=== PATIENT | female | born 1965 | race Caucasian/White ===

== ENCOUNTER 2016-11-18 09:34 | Inpatient (IN) | payer OTHER ==
--- NOTE | 2016-11-03 13:54 | HP ---
HISTORY AND PHYSICAL: DATE OF ADMISSION/SURGERY: 11/18/16 DATE OF OFFICE VISIT: 11/03/16 PROCEDURE: Left total hip replacement. CHIEF COMPLAINT: Right hip pain. HISTORY OF PRESENT ILLNESS: The patient is a very pleasant 51-year-old female who presents today for history and physical examination prior to undergoing a right total hip replacement. The patient has a longstanding history of right severe osteoarthritis of the hip and has failed conservative treatments such as physical therapy, NSAID, and modified use. She has has elected to undergo a right total hip replacement by Dr. Sangeetha Christensen on 11/18/16. PAST MEDICAL HISTORY: 1. Arthritis. 2. History of right bundle branch block. PAST SURGICAL HISTORY: Tonsillectomy. MEDICATIONS: Advil p.r.n. ALLERGIES: No known drug allergies. FAMILY MEDICAL HISTORY: History of maternal heart disease. SOCIAL HISTORY: Currently working as a hairdresser. Approximately 5 drinks per week. Lives with , who has a stage 4 colon cancer. No history of tobacco use. REVIEW OF SYSTEMS: General: Negative for fevers, chills, or night sweats. No difficulty with anesthesia; however, relatively unknown. Positive intentional weight loss over the past 2 to 3 months. HEENT: Negative for headache, lightheadedness or syncopal episodes. Integument: Negative for abrasions, lesions, open wounds, sores, or difficulty with wound healing. Cardiothoracic: Negative for hypertension, chest pain, palpitations, or edema. Recently diagnosed with right bundle branch block. Pulmonary: Negative for shortness of breath, chronic cough, or COPD. GI: Negative for nausea, vomiting, constipation, diarrhea, or GERD. : Negative for nocturia, urinary frequency or urgency. No history of UTIs. Musculoskeletal: Positive for intermittent back pain. Positive for right hip pain. Neuro: Negative for paresthesias, numbness. No history of stroke. Endocrine: Negative for diabetes. Negative for thyroid issues. Hematologic: Positive for easy bruising. Negative for DVT. PHYSICAL EXAMINATION GENERAL: Well appearing, in no acute distress. Alert and oriented. VITAL SIGNS: Height 67 inches, weight 163 pounds. Pulse 73, blood pressure 147 /90, temperature 97.7. BMI 25.5. HEENT: Normocephalic, atraumatic. EOMI. PULMONARY: Lungs are clear to auscultation bilaterally. No crackles, rhonchi or wheezes. CARDIO: Regular rate and rhythm. No murmurs, gallops or rubs. Normal S1 and S2. ABDOMEN: Soft, nontender, and nondistended, not obese. Negative CVA tenderness bilaterally. MUSCULOSKELETAL: Right hip with range of motion and forward flexion to 90, abduction to 35 degrees. Negative Homans sign bilaterally. Positive 2+ posterior tibial pulses. NEUROLOGIC: Alert and oriented x3. Cranial nerves grossly intact. Sensation intact to light touch in bilateral lower extremities. DIAGNOSTIC STUDIES: X-rays of the right hip and pelvis dated 10/27/16. IMPRESSION: The patient is a very pleasant 51-year-old female who presents today for history and physical examination prior to undergoing a right total hip replacement. The patient was seen by Dr. Birmingham for her preoperative evaluation. She would like to return home postoperatively. She has one episode of taking narcotics in the past, which she was unknown as a medication, but stated that this had made her sick. Therefore, we will not send her postoperative medications until we know what narcotic she will be able to handle. She would like to have a very minimal amount of narcotic during her hospital course, if at all possible. Dr. Christensen met with the patient and discussed the risks and benefits of the procedure. She has no other questions or concerns. ALONDRA ERNST [id number]/[facility] #: [id number] MTDD
[~2016-11-18 09:34] MED LIST: Buffered Lidocaine 0.9% SYRIN* 5 ML/SYR SYRINGE INTRADERM ONE; Gabapentin CAP(*) 400 MG PO ONE; Sodium Citrate/Citric Acid* 15 ML UDC PO ONE
[2016-11-18] MEDS ORDERED: Gabapentin CAP(*) 300 MG ONE (09:40)
[2016-11-18] MEDS ORDERED: Buffered Lidocaine 0.9% SYRIN* 5 ML/SYR SYRINGE ONE (09:41)
[2016-11-18] MEDS ORDERED: ceFAZolin 2 GM PREMIX(*) 2 GM/50 ML BAG IVPB ONE (09:41)
[2016-11-18] MEDS ORDERED: Sodium Citrate/Citric Acid* 15 ML UDC ONE (09:41)
[2016-11-18 09:55] LABS: Manual Entry Verification JEA0012; UR Preg Internal Control QC Line Present
[2016-11-18] MEDS ORDERED: Morphine PF AMP (0.5MG/ML)* 5 MG/10 ML AMP ONE (12:04)
[2016-11-18] MEDS ORDERED: Midazolam* 1 MG/ML 5 ML VIAL (5 MG) ONE (12:04)
[2016-11-18] MEDS ORDERED: fentaNYL* 50 MCG/ML 2 ML VIAL (100 MCG VIAL) ONE ×2 (12:04→15:00)
[2016-11-18] MEDS ORDERED: Bupivacaine 0.5% SDV PF* 30 ML VIAL ONE (12:05)
[2016-11-18] MEDS ORDERED: Propofol* 500 MG/50 ML BTL ONE (12:37)
[2016-11-18] MEDS ORDERED: Naloxone* 0.4 MG/ML 1 ML VIAL IV PRN (12:56)
[2016-11-18] MEDS ORDERED: DiMENhydriNATE IV* 50 MG/ML VIAL IV PUSH PRN (12:56)
[2016-11-18] MEDS ORDERED: oxyCODONE TAB* 5 MG TAB PO PRN ×2 (12:56→14:17)
[2016-11-18] MEDS ORDERED: Ondansetron INJ* 2 MG/ML VIAL IV PRN ×2 (12:56→14:17)
[2016-11-18] MEDS ORDERED: Nalbuphine* 20 MG/ML 1 ML VIAL IV PRN (12:56)
[2016-11-18] MEDS ORDERED: Ketorolac INJ* 30 MG/ML 1 ML VIAL IV PRN (12:59)
[2016-11-18] MEDS ORDERED: fentaNYL* 50 MCG/ML 2 ML VIAL (100 MCG VIAL) IV PRN (12:59)
[2016-11-18] MEDS ORDERED: Phenylephrine IV* 40 MCG/ML 10 ML SYRINGE ONE (13:06)
[2016-11-18] MEDS ORDERED: EPHEDrine (Pressors)* 50 MG/ML VIAL ONE (13:21)
[2016-11-18] MEDS ORDERED: diPHENhydraMINE PO* 25 MG PO PRN (14:17)
[2016-11-18] MEDS ORDERED: diPHENhydraMINE IV* 50 MG/ML 1 ml VIAL (BENADRYL) IV PRN (14:17)
[2016-11-18] MEDS ORDERED: Ondansetron TAB* 4 MG PO PRN (14:17)
[2016-11-18] MEDS ORDERED: Acetaminophen TAB* 325 MG PO PRN (14:17)
[2016-11-18] MEDS ORDERED: oxyCODONE/Acetamin 5/325 MG* TAB PO PRN ×2 (14:17→14:32)
[2016-11-18] MEDS ORDERED: Morphine INJ* 10 MG/ML 1 ML SYRINGE IV PRN (14:17)
[2016-11-18] MEDS ORDERED: Polyethylene Glycol 3350* 17 GM PACKET PO PRN (14:23)
[2016-11-18] MEDS ORDERED: Cetirizine* 10 MG TAB PO PRN (14:29)
--- NOTE | 2016-11-18 14:59 | RAD ---
HISTORY: Right total hip replacement COMPARISONS: October 27, 2016 VIEWS: 1, portable intraoperative view of the right hip performed at 1:55 PM FINDINGS: Single portable frontal view of the right hip. The patient is status post right hip arthroplasty with a temporary femoral sizing component IMPRESSION: PORTABLE INTRAOPERATIVE VIEW OF THE RIGHT HIP DURING ARTHROPLASTY
[2016-11-18] MEDS ORDERED: Midazolam* 1 MG/ML 2 ML VIAL (2 MG) ONE (15:00)
[2016-11-18] MEDS ORDERED: Ketorolac INJ* 30 MG/ML 1 ML VIAL ONE (15:19)
[2016-11-18] MEDS ORDERED: DiMENhydriNATE IV* 50 MG/ML VIAL ONE (16:18)
[2016-11-18] MEDS ORDERED: Ondansetron INJ* 2 MG/ML VIAL ONE (16:34)
--- NOTE | 2016-11-18 16:41 | RAD ---
Indication: Right hip arthroplasty. 2 views of the right hip demonstrates right hip replacement in satisfactory position. No loosening is noted. IMPRESSION: Right hip replacement in satisfactory position.
--- NOTE | 2016-11-18 16:42 | RAD ---
Indication: Status post right hip replacement. Single low AP view of the right hip demonstrates no fracture. Pelvic ring is intact. IMPRESSION: Right hip replacement in satisfactory position.
[2016-11-18] MEDS ORDERED: Warfarin TAB(*) 6 MG PO ONE (17:00)
[2016-11-18] MEDS: Fluticasone NASAL SPRAY 50MCG* 16 gm SPRAY BTL BOTH NARES SCH (18:13)
[2016-11-18] MEDS ORDERED: Scopolamine 1.5 mg* PATCH TRANSDERM ONE (19:00)
[2016-11-18] MEDS ORDERED: DiMENhydriNATE IV* 50 MG/ML VIAL IV PUSH ONE (19:00)
[2016-11-18] MEDS: Docusate CAP* 100 MG PO SCH (20:31)
[2016-11-18] MEDS: Magnesium Hydroxide LIQ* 30 ML UDC PO SCH (20:54)
[2016-11-18] MEDS: ceFAZolin VIAL(*) 1 GM in NS 0.9% 50 ML* 50 ML IVPB SCH (21:02)
[2016-11-19] MEDS: ceFAZolin VIAL(*) 1 GM in NS 0.9% 50 ML* 50 ML IVPB SCH ×2 (04:24→12:40)
[2016-11-19 06:53] LABS: Hematocrit 30 % (35-47)
[2016-11-19 07:22] LABS: BUN/Creatinine Ratio 13.3 (8-20); Calcium 8.2 mg/dL (8.6-10.3); EGFR Non-African American 80.8 (>60); Potassium 3.7 mmol/L (3.5-5.0)
[2016-11-19] MEDS: Magnesium Hydroxide LIQ* 30 ML UDC PO SCH ×2 (08:34→21:53)
[2016-11-19] MEDS: Docusate CAP* 100 MG PO SCH ×2 (08:34→21:52)
--- NOTE | 2016-11-19 10:04 | OP ---
DATE OF OPERATION: 11/18/16 - ROOM #342 DATE OF : 61 SURGEON: Sangeetha Christensen MD STRIPPER [employer]OVEL OPERATOR: ALONDRA Almodovar. Ms. Milan did help throughout the procedure with preparation of the leg, wound retraction, manipulation of the hip and wound closure. ANESTHESIOLOGIST: Dr. Roddy Copeland. ANESTHESIA: Spinal. PRE-OP DIAGNOSIS: Severe degenerative osteoarthritis of the right hip joint secondary to developmental dysplasia of the hip. POST-OP DIAGNOSIS: Severe degenerative osteoarthritis of the right hip joint secondary to developmental dysplasia of the hip. OPERATIVE PROCEDURE: Right total hip arthroplasty. COMPLICATIONS: None. ESTIMATED BLOOD LOSS: 300 cc. SPECIMENS: Femoral head and acetabular reaming sent to Pathology. HARDWARE USED: This is uncemented [employer] [place] total hip hardware. For the acetabulum a Trident hemispherical shell 52E. One 16 mm cancellous bone screw. For the liner, a polyethylene X3 0-degree Trident insert 26D. For the stem, an Accolade TMZF size 2 with a 127-degree neck. For the head, a ceramic Biolox delta V47 femoral head size 36, -2.5. BRIEF HISTORY/INDICATIONS: Ms. Josefa Chung is a 51-year-old female with years of increasingly severe right hip pain. She failed conservative treatment with antiinflammatories, pain medications, physical therapy, and activity modifications. The pain became severe and her radiographs demonstrated bone-on- bone arthritis. Due to continued pain and decreased quality of lift the patient elected to have right total hip arthroplasty. Informed consent was obtained from the patient. She understood the risks of the procedure included, but were not limited to bleeding, infection, damage to nearby structures, continued pain, need for further surgery, intraoperative fracture, nerve palsy, hardware failure, loosening, dislocation, leg length discrepancy, stroke, heart attack, blood clot, and . She wished to proceed. INTRAOPERATIVE FINDINGS: Intraoperatively, the patient was noted to have severe arthritis of the hip joint with complete loss of cartilage along the femoral head and acetabulum. Significant amount of anterior acetabular osteophytes. She had dysplastic shallow acetabulum and a small proximal femur consistent with dysplasia. DESCRIPTION OF PROCEDURE: Ms. Josefa Chung was identified in the preanesthesia unit. Her right lower extremity was marked as the correct operative side. Informed consent was signed and placed in the chart. The patient was taken to the operating room and placed under spinal anesthesia. A Bernstein catheter was placed. The patient was placed in left lateral decubitus position on the pegboard. All bony prominences were well padded. The right lower extremity was prepped and draped in the usual sterile fashion. Preop time-out was made to correctly identify the patient side and site. Appropriate preoperative antibiotics were given within 1 hour of incision. A 12-cm posterior hip incision was made with a 10-blade and carried down through the subcutaneous fat to the lateral fascial layer. Lateral fascial layer was incised in line with the skin incision. A Charnley retractor was placed. The piriformis and conjoint tendons were identified along the posterolateral femur. These were elevated using electrocautery and tagged with two #5 Ethibonds. Next, electrocautery was used to make a standard posterolateral capsular flap and this was also tagged with two #5 Ethibonds. The hip was carefully dislocated. Lesser troch to center of the femoral head measured 50 mm. Oscillating saw was used to make the appropriate femoral neck and was sent to Pathology. The femur was carefully retracted anteriorly. After appropriate placement of retractors, the acetabulum was easily visualized. There was simply less in cartilage in the acetabulum. The long-handled knife was used to remove the any labrum remaining along the acetabular rim. The acetabulum was sequentially reamed to a size 51. A good bleeding bone bed was obtained. A 51 trial had excellent fit. A Trident hemispherical shell 52E was chosen. This was impacted into the acetabulum without difficulty. There is good stability and appropriate abduction angle. One 50 mm screw was placed in the superoposterior quadrant for extra stability. A Trident X3 0-degree liner was chosen. This was impacted into the acetabulum without difficulty. Stability of the liner was checked and rechecked and noted to be stable. Next, attention was turned to preparation of the femur. A canal finder was used to enter the proximal femur. It was noted that the proximal femur had a small intramedullary canal. Careful slow broaching was performed up to a size 2. Size 2 broach had excellent fit. A 127 neck trial at 36, +0 femoral head trial was chosen. The hip was reduced and taken through a range of motion. The hip was stable in all positions with good range of motion. There was appropriate soft tissue tension and leg length. The hip was carefully dislocated. All trials were carefully removed. Final implant chosen was an Accolade TMZF size 2 with a 127-degree neck. This was impacted into the femoral canal without difficulty. There was good stability. Appropriate anteversion was noted. A -2.5 head trial was measured. The 36, -2.5 Biolox delta V40 femoral head was chosen as the final implant. This was impacted on to the femoral neck without difficulty. Lesser troch to center of the femoral head measured approximately 50 mm. The hip was reduced and taken through a range of motion. The hip was stable in all positions. Previously tagged capsule and tendons were reapproximated to the posterolateral femur through 2 trochanteric drill holes. The hip copiously irrigated with sterile saline. The lateral fascial layer was closed using interrupted #1 Vicryl. The rest of the incision was closed in a layered fashion using 0 and 2-0 Vicryl. The skin was closed using running 3-0 Monocryl with Dermabond. Sterile Adaptic, 4x4's, and paper tape were used to cover the incision. The patient's anesthesia was reversed without difficulty. She was taken to the PACU in stable condition. Intended weightbearing will be weightbearing as tolerated with posterior hip precautions. Intended DVT prophylaxis will be Coumadin with a Lovenox bridge. [id number]/[facility] #: [id number] MTDD
--- NOTE | 2016-11-19 10:14 | PN ---
Progress Note - Progress Note Date of Service: 11/19/16 SOAP: Subjective: []Patient seen OOB in chair. Nauseated from percocet but did not have nausea with the plain oxycodone. Would like to try and limit narcotic pain medications and be able to use tylenol only eventually. Objective: [] Vital Signs Temp 98.3 F 11/19/16 07:34 Pulse 88 11/19/16 07:34 Resp 16 11/19/16 08:33 BP 107/58 11/19/16 07:34 Pulse Ox 100 11/19/16 07:34 Intake & Output 11/18/16 11/19/16 11/19/16 18:59 06:59 18:59 Intake Total 3450 2660 720 Output Total 450 1150 Balance 3000 1510 720 Weight 163 lb Intake: IV Fluids 3450 1140 LR 3450 1140 IVPB 120 ABX - CEFAZOLIN 120 Oral 1400 720 Output: Bernstein 450 1150 Other: # Bowel Movements 0 Estimated Blood Loss 200 Comment Laboratory Results - last 24 hr 11/18/16 11/19/16 11/19/16 10:06 06:36 06:36 Hgb 10.0 L Hct 30 L INR (Anticoag Therapy) 0.97 Sodium Potassium Chloride Carbon Dioxide Anion Gap BUN Creatinine Est GFR ( Amer) Est GFR (Non-Af Amer) BUN/Creatinine Ratio Glucose Calcium Blood Type O Positive Antibody Screen Negative 11/19/16 06:36 Hgb Hct INR (Anticoag Therapy) Sodium 133 Potassium 3.7 Chloride 99 L Carbon Dioxide 30 Anion Gap 4 BUN 10 Creatinine 0.75 Est GFR ( Amer) 104.0 Est GFR (Non-Af Amer) 80.8 BUN/Creatinine Ratio 13.3 Glucose 136 H Calcium 8.2 L Blood Type Antibody Screen Right hip dressing clean and dry calf non tender and soft +DF/PF right ankle sensation intact distally Assessment: []s/p Right total hip arthroplasty POD #1 Plan: []PT/OT WBAT RLE Coumadin with lovenox bridge, 8 mg today discontinue Percocet Zofran Q4 prn would like to do outpatient PT at [facility] over weekend
[2016-11-19] MEDS: Enoxaparin(*) 30 MG/0.3 ML SYR SUBCUT SCH (10:15)
[2016-11-19] MEDS ORDERED: Ondansetron INJ* 2 MG/ML VIAL IV PRN (10:15)
[2016-11-19] MEDS: Ondansetron TAB* 4 MG PO SCH ×3 (14:09→21:53)
[2016-11-19] MEDS ORDERED: traMADol TAB* 50 MG ONE (16:15)
[2016-11-19] MEDS: Acetaminophen IV 1GM/100ML * 1,000 MG/100 ML VIAL IVPB SCH ×2 (16:20→21:53)
[2016-11-19] MEDS ORDERED: traMADol TAB* 50 MG PO PRN (16:36)
[2016-11-19] MEDS ORDERED: Warfarin TAB(*) 4 MG PO ONE (17:00)
[2016-11-19] MEDS: Fluticasone NASAL SPRAY 50MCG* 16 gm SPRAY BTL BOTH NARES SCH (18:05)
[2016-11-20] MEDS: traMADol TAB* 50 MG PO PRN ×2 (00:11→06:09)
[2016-11-20] MEDS: Ondansetron TAB* 4 MG PO SCH ×4 (02:48→13:53)
[2016-11-20] MEDS: Acetaminophen IV 1GM/100ML * 1,000 MG/100 ML VIAL IVPB SCH ×2 (03:53→09:47)
[2016-11-20 05:05] LABS: Hematocrit 28 % (35-47); Hemoglobin 9.4 g/dl (12.0-16.0)
[2016-11-20] MEDS: Docusate CAP* 100 MG PO SCH (08:24)
[2016-11-20] MEDS: Magnesium Hydroxide LIQ* 30 ML UDC PO SCH (08:36)
[2016-11-20] MEDS: Enoxaparin(*) 30 MG/0.3 ML SYR SUBCUT SCH (09:53)
--- NOTE | 2016-11-20 10:16 | PN ---
Progress Note - Progress Note Date of Service: 11/20/16 SOAP: Subjective: POD #2 Right FRIDA, doing very well. States that pain is well controlled with Tramadol and no nausea at this point. Able to ambulate comfortably with walker and do stairs. Would like to go home. Denies CP/SOB, f/c, calf pain Objective: Vitals: Temp Pulse Resp BP Pulse Ox 98.1 F 74 16 96/59 99 11/20/16 07:49 11/20/16 07:49 11/20/16 08:09 11/20/16 07:49 11/20/16 07:49 Gen: A&Ox3, NAD at rest R Hip: Incision C/D/I, mild ecchymosis, no erythema. Thigh soft, mild ttp with some edema. +f/e at knee, ankle and MTPs, N/V intact Labs: Laboratory Results - last 24 hr 11/20/16 11/20/16 04:41 04:41 Hgb 9.4 L Hct 28 L INR (Anticoag Therapy) 1.27 H Assessment: POD #2 Right FRIDA Plan: D/C home today. Pt to do outpt PT, will set up outpt INR draws as well Cont 8mg Coumadin tonight, 6mg tomorrow F/u with Dr. Christensen 10-14 days post op
[2016-11-20 12:05] VITALS: BP 114/75
--- NOTE | 2016-11-20 12:31 | DS ---
DISCHARGE SUMMARY: DATE OF ADMISSION: 11/18/16. DATE OF DISCHARGE: 11/20/16. ADMITTING DIAGNOSIS: Severe end-stage osteoarthritis of the right hip. DISCHARGE DIAGNOSIS: Severe end-stage osteoarthritis of the right hip, status post right total hip replacement. HISTORY OF PRESENT ILLNESS: Ms. Chung is a 51-year-old female who has had longstanding pain in the right hip and failed conservative treatments. She elected to undergo a total hip replacement by Dr Abhijit Christensen. HOSPITAL COURSE: On 11/18/16, the patient was admitted to [facility], underwent a succes sful right total hip replacement by Dr. Christensen. She recovered briefly in the postanesthesia care [facility] t and was transferred to the short stay surgical unit in stable condition. On post op day 1, the pa silvana did have some trouble with nausea secondary to the pain medication and was not feeling well. Her H and H was 10.0 and 30, INR was 0.97 with 6 mg of Coumadin. Previously, she was able to ambula te briefly with physical therapy despite not feeling well. On postop day 2, the patient states that she was feeling much better just taking tramadol and her pain was well controlled. She was able to ambulate much longer distance with physical therapy and work on stairs. H and H dropped slightly t o 9.4 and 28, although asymptomatic. INR 1.27 with 8 mg of Coumadin previously. The patient was co mfortable with discharge home on postop day 2 . Throughout her hospital course, the patient remaine d afebrile and her vital signs were stable. DISCHARGE INSTRUCTION: The patient is understanding to keep her wound dry until postop day 4; at th at point, she may shower normally, but is to avoid any submerging the wound in the bathtub, hot tub or swimming pool. She will continue weightbearing as tolerated with the use of a rolling walker and is to follow her posterior hip precaution. She will attend physical therapy as an outpatient and w ill be set up for outpatient INR draws. She will continue taking Coumadin for DVT prophylaxis. She will follow up in the office in 10 to [address] Christensen. She is understanding to call the office with any questions or concerns, go directly to the ER with any chest pain, short ness of breath, calf pain or swelling, fever greater than 101.5. DISCHARGE MEDICATIONS: 1. The patient will take tramadol 50 mg 1 to 2 tabs p.o. q.6 hours p.r.n. pain. 2. Coumadin. She will take 8 mg on 11/20/16. She will take 6 mg on 11/21/16. She will have a redr aw of her INR on 11/22/16. 3. Colace 100 mg p.o. b.i.d. 4. Tylenol 650 mg p.o. q.4 hours p.r.n. pain. 5. She will continue her home medications of Iza 1 tab p.o. q. day p.r.n. 6. Fluticasone nasal 50 mcg 2 sprays both nares q.p.m. All the patient's questions were answered to her satisfaction. ALONDRA ARAUJO [id number]/[facility] #: [id number]
[2016-11-21] MEDS ORDERED: Scopolomine PATCH Remove* 1 NOTE MISC PATCH OFF ONE (18:00)
== END 2016-11-20 14:00 | disposition home or self-care (01) | DRG 470 ==
LOC: AA 09:34 → SSU 17:24
PROVIDERS: ADMIT Orthopaedic Surgery Adult Reconstructive Orthopaedic Surgery; ATTEND Orthopaedic Surgery Adult Reconstructive Orthopaedic Surgery
PROC: 0SR904A Replacement of Right Hip Joint with Ceramic on Polyethylene Synthetic Substitute, Uncemented, Open Approach (ICD-10-PCS; principal; 2016-11-18 12:00)
DX: M16.11 Unilateral primary osteoarthritis, right hip (principal); I45.10 Unspecified right bundle-branch block; M25.751 Osteophyte, right hip; R11.0 Nausea; T40.2X5A Adverse effect of other opioids, initial encounter; Q65.89 Other specified congenital deformities of hip; Z82.49 Family history of ischemic heart disease and other diseases of the circulatory system
CPT/HCPCS: 36415; 72170; 80048; 81025; 85014; 85018; 85610; 86850; 86900; 86901; 94760; A9270-GY; C1713; C1776; J0690; J1240; J1650; J1885; J2250; J2405; J2704; J3010

== ENCOUNTER 2018-03-16 07:57 | Inpatient (IN) | payer OTHER ==
--- NOTE | 2018-03-08 16:24 | HP ---
AMENDED REPORT NOW INCLUDES DESIGNATED COSIGNER HISTORY AND PHYSICAL: DATE OF ADMISSION/SURGERY: 03/16/18 DATE OF OFFICE VISIT: 03/08/18 SURGEON: Sangeetha Christensen MD * (DICTATED BY ALONDRA BAE) PROCEDURE: Left total hip arthroplasty. CHIEF COMPLAINT: Left hip pain. HISTORY OF PRESENT ILLNESS: Ms. Josefa Chung is a 52-year-old female with complaints of left hip pain. She has failed conservative treatment and elected to proceed with a left total hip arthroplasty, which is scheduled for 03/16/18. PAST MEDICAL HISTORY: Osteoarthritis. PAST SURGICAL HISTORY: Right total hip arthroplasty and tonsillectomy. CURRENT MEDICATIONS: 1. Advil. 2. Iza. ALLERGIES: No known drug allergies. FAMILY HISTORY: Coronary artery disease. SOCIAL HISTORY: She is a 52-year-old female. She lives with a roommate. She does not smoke or use drugs. Uses occasional alcohol. REVIEW OF SYSTEMS: A complete 14-point review of systems was reviewed with the patient. It was all negative or noncontributory. She denies history of DVT, PE , hepatitis, HIV, or anesthesia problems. PHYSICAL EXAMINATION GENERAL: Ms. Josefa Chung is a 52-year-old female. She is well developed, well nourished, in no acute distress. She is alert and oriented x3. Pleasant mood and appropriate affect. VITAL SIGNS: She stands 5 feet 7 inches tall, weighs 162 pounds. Her blood pressure is 146/86 and heart rate is 76. HEENT: Normocephalic, atraumatic. NECK: Supple. No palpable lymph nodes. PULMONARY: The lungs are clear to auscultation bilaterally. CARDIO: Regular rate and rhythm. Strong S1, S2. ABDOMEN: Soft, nontender, and nondistended. MUSCULOSKELETAL: Left lower extremity: The skin is intact. There are no open wounds or abrasions. She walks with an antalgic-type gait favoring her left hip. She has decreased internal and external rotation of the left hip. She has a 2+ dorsalis pedis pulse, intact sensation in her lower extremity. Muscle group strengths are intact at 5/5. ASSESSMENT AND PLAN: Ms. Josefa Chung is a 52-year-old female with end- stage osteoarthritis of the left hip. She has failed conservative treatment and elected to proceed with a left total hip arthroplasty, which is scheduled for 03/16/[address] Christensen discussed the risks and benefits of the surgery at today's visit and all of her questions were answered. She will follow up with Dr. Christensen 2 weeks after the surgery. ALONDRA BAE [id number]/[facility] #: [id number] [facility]ENTER[facility]é
[~2018-03-16 07:57] MED LIST changes: +Acetaminophen IV 1GM/100ML * 1,000 MG/100 ML VIAL IVPB ONE; +Dexamethasone IV* 4 MG/ML 1 ML (4 MG) IV SLOW PU ONE; +Famotidine IV* 10 MG/ML 2 ML (20 mg) IV ONE; +Gabapentin CAP(*) 300 MG PO ONE; -Gabapentin CAP(*) 400 MG PO ONE; +Morphine VIAL* 4 MG/ML VIAL (1 ml vial) IV ONE; -Sodium Citrate/Citric Acid* 15 ML UDC PO ONE; +celeCOXIB CAP* 200 MG PO ONE
--- OUTSIDE RECORDS SUMMARY | 2018-03-16 08:02 | XMS REPORT ---
:1965 External Reference #:[id number] Author Organization [facility] Address [address] [place] [address] Phone [phone] Care Team Providers Name Role Phone Jean Linda MD Care Team Information Chemical Processor Unavailable Jean Linda MD Primary Care Physician Unavailable Payers Type Date Identification Payment Subscriber Numbers Provider Health Maintenance Effective: Policy Number: [facility] ([facility]) 11/13/2016 [id number] [employer] Number: [id number] [address] PayID: [id number] [place] [address] Problems Date Description Provider Status Onset: 11/26/2016 Rectal pain Jean Linda M.D. Active Onset: 11/01/2016 Symptom of skin and integumentary Jean Linda M.D. Active tissue Onset: 11/01/2016 Right bundle branch block Jean Linda M.D. Active Onset: 02/09/2016 Arthralgia of the pelvic region and Jean Linda M.D. Active thigh Family History Date Family Member(s) Problem(s) Comments Father Good Health Mother Coronary Artery Disease (CAD) problems in her 40's , nonsmoker Social History Type Date Description Comments Cigarette Use Nonsmoker Smoking Patient has never smoked Allergies, Adverse Reactions, Alerts Date Description Reaction Status Severity Comments 02/05/2012 NKDA active Medications Medication Date Status Form Strength Qnty SIG Indications Ordering Provider Advil Active Tablets 200mg 2 tabs every Unknown /0000 night as needed Nasacort Active Aerosol 55mcg/Act spray 2 Unknown Allergy 24HR /0000 sprays in each nostril at bedtime Anusol-HC 11/26 Hx Cream 2.5% 28.35units apply to Jean F. affected Alexei, - area(s) four M.D. 12/28 times a day /2016 as needed No Active 02/08 Hx Unknown Medications /2015 - 11/01 Vicodin 05/01 Hx Tablets 5-500mg 40tabs 1 po every six hours Jv Meier - prn. M.DAbhijit 05/01 Medrol (Mack) 05/01 Hx Tablets 4mg 1tabs use as instructed. Heather Arias M.D. 02/04 Ibuprofen 04/24 Hx Tablets 600mg 1 po tid prn 720.2 Heather Arias M.D. 02/04 Tessalon 12/04 Hx Capsules 200mg 30caps 1 po tid prn Selin cough [facility], - Afnp-C 12/14 Amoxicillin 11/10 Hx Capsules 500mg 30caps 1 po tid x 462 Betsy /2007 10D Beverley, - [employer] UP OPER[employer] C[employer] 12/04 Z-Mack 01/18 Hx Tablets 250mg as Dfirected Dex Rosales /2006 Heather Varela.DAbhijit 11/10 Flonase 11/30 Hx [place] 50mcg/Spr 0units 1 sprays Dex Rosales /2006 ay each nostril Breiman, - qd prn M.D. 11/10 Zithromax 11/30 Hx Tablets 500 3tabs 1 PO qd X3 Walt Isabel /2006 Days Midura, - M.D. 01/18 Flonase 07/10 Hx Nasal Oneinhalr 2 Sprays Dex Rosales /2003 Sray Each Nostril Breiman, - qd M.D. 03/24 Advil Hx Tablets 200mg 3 PO qd prn Unknown /0000 - 02/07 Iza Hx Tablets 180mg 1 by mouth Unknown Allergy /0000 every day - 12/28 Warfarin Hx Tablets 2mg 6-8 mg daily Unknown Sodium /0000 - 12/28 Tylenol 00/00 Hx Tablets 500mg 1-2 tab by Unknown Extra /0000 mouth as Strength - needed 12/28 osteoarthr is every 8 hours Immunizations CPT Code Status Date Vaccine Lot # 26041 Given 05/16/2002 Td Immunization, For Use In Individuals 7 Years Or Older Vital Signs Date Vital Result Comment 02/27/2018 BP Systolic 132 mmHg BP Diastolic 88 mmHg Heart Rate 90 /min Body Temperature 97.9 F Height 66.75 inches 5'6.75" Weight 161.00 lb BMI (Body Mass Index) 25.4 kg/m2 12/29/2016 BP Systolic 130 mmHg BP Diastolic 80 mmHg Heart Rate 96 /min Body Temperature 97.7 F Height 66.75 inches 5'6.75" Weight 160.50 lb BMI (Body Mass Index) 25.3 kg/m2 11/26/2016 BP Systolic 122 mmHg BP Diastolic 80 mmHg Heart Rate 106 /min Body Temperature 97.3 F Height 66.75 inches 5'6.75" Weight 161.50 lb BMI (Body Mass Index) 25.5 kg/m2 11/01/2016 BP Systolic 118 mmHg BP Diastolic 82 mmHg Heart Rate 78 /min Body Temperature 98.2 F Height 66.75 inches 5'6.75" Weight 165.38 lb BMI (Body Mass Index) 26.1 kg/m2 02/09/2016 BP Systolic 142 mmHg BP Diastolic 94 mmHg Heart Rate 92 /min Body Temperature 98.6 F Height 66.75 inches 5'6.75" Weight 168.12 lb BMI (Body Mass Index) 26.5 kg/m2 02/05/2012 BP Systolic 110 mmHg BP Diastolic 80 mmHg Heart Rate 84 /min Body Temperature 98.8 F Weight 185.00 lb 04/24/2009 Heart Rate 88 /min Body Temperature 98.1 F Respiratory Rate 16 /min Weight 187.00 lb 12/05/2007 BP Systolic 120 mmHg BP Diastolic 72 mmHg Heart Rate 84 /min Body Temperature 98.2 F Height 67 inches 5'7" 11/11/2007 BP Systolic 130 mmHg BP Diastolic 80 mmHg Heart Rate 80 /min Body Temperature 99.5 F Height 67 inches 5'7" Weight 181.00 lb BMI (Body Mass Index) 28.3 kg/m2 01/18/2007 BP Systolic 130 mmHg BP Diastolic 80 mmHg Heart Rate 92 /min Body Temperature 99.8 F Height 67 inches 5'7" 11/30/2006 BP Systolic 118 mmHg BP Diastolic 80 mmHg Heart Rate 90 /min Body Temperature 99.9 F Height 67 inches 5'7" Weight 171.00 lb BMI (Body Mass Index) 26.8 kg/m2 03/24/2005 BP Systolic 112 mmHg BP Diastolic 68 mmHg Heart Rate 88 /min Height 67 inches 5'7" Weight 181.00 lb BMI (Body Mass Index) 28.3 kg/m2 07/10/2003 BP Systolic 120 mmHg BP Diastolic 80 mmHg Heart Rate 88 /min Height 67 inches 5'7" Weight 182.00 lb BMI (Body Mass Index) 28.5 kg/m2 06/13/2002 BP Systolic 134 mmHg BP Diastolic 88 mmHg Heart Rate 80 /min Body Temperature 98.2 F Height 67 inches 5'7" Weight 181.00 lb BMI (Body Mass Index) 28.3 kg/m2 Results Test Date Test Result H/L Range Note Laboratory test 11/30/2017 Surgical Interface SEE RESULT BELOW 1, 2 finding Order GC/Chlamydia 11/23/2017 Chlamydia Negative Negative Amplified Rna trachomatis Rna Neisseria gonorrhoeae (GC) Rna Negative Negative Laboratory test finding 11/23/2017 Cytology SEE RESULT BELOW 3 CBC Manual Diff-Fma 12/29/2016 WBC 5.2 3.6-9.6 RBC 4.40 3.90-5.70 Hemoglobin (Fma/CMC/CTX) 13.3 g/dL 12.1 - 17.2 Hematocrit (Fma/CMC/CTX) 39.7 % 36.1 - 50.3 Mean Corpuscular Vol 90 82.2-97.4 Mean Corpuscular Hemoglobin 30.2 27.6-33.3 Mean Corpuscular Hemo Concen 33.5 32.0-36.0 Platelets 234 10^3/ul 150-400 RDW 14.1 High 11.6-13.7 Mean Platelet Volume 7.7 5.5-11.0 Neutrophil 56 Band 5 Lymphocytes 30 Monocyte 7 Eosinophils 1 Atypical Lymph 1 Anisocytosis (Fma/CMC/[facility]rex) slight Z#Comment see result note Laboratory test 12/29/2016 Sedimentation Rate 17mm finding CMV Igg/Igm 12/29/2016 Cytomegalovirus (CMV) Ab, <0.60 U/mL 0.00-0.59 4 , 5 IgG Cytomegalovirus (CMV) Ab, IgM <30.0 AU/mL 0.0-29.9 4, 6 Ebv Acute Infection Antibodies 12/29/2016 Ebv Ab Vca, IgM <36.0 U/mL 0.0- 35.9 4, 7 Profile Ebv Early Antigen Ab, IgG 28.7 U/mL High 0.0-8.9 4, 8 Ebv Ab Vca, IgG >600.0 U/mL High 0.0-17.9 4, 9 Ebv Nuclear Antigen Ab, IgG 322.0 U/mL High 0.0-17.9 4, 10 Interpretation: See Comment: 4, 11 Parvovirus B19, Human, 12/29/2016 Parvovirus B19, IgG 1.1 index High 0.0- 0.8 4, 12 Igg/Igm Parvovirus B19, IgM 0.2 index 0.0-0.8 4, 13 Laboratory test finding 12/29/2016 TSH 2.32 mIU/L 0.50-6.00 Free T4 0.76 ng/dL 0.75-1.54 CBC No Diff 11/03/2016 White Blood Count 4.1 10^3/uL 3.5-10.8 14 Red Blood Count 4.81 10^6/uL 4.0-5.4 14 Hemoglobin 14.2 g/dL 12.0-16.0 14 Hematocrit 43 % 35-47 14 Mean Corpuscular Volume 90 fL 80-97 14 Mean Corpuscular Hemoglobin 30 pg 27-31 14 Mean Corpuscular HGB Conc 33 g/dL 31-36 14 Red Cell Distribution Width 13 % 10.5-15 14 Platelet Count 173 10^3/uL 150-450 14 Mean Platelet Volume 10 um3 7.4-10.4 14 Inr/Protime 11/03/2016 Inr 0.86 Low 0.89-1.11 14 Laboratory test 11/03/2016 Partial Thrombo 29.2 seconds 26.0-36.3 14, 15 finding Time PTT Urinalysis Profile 11/03/2016 Urine Color Straw 14 Urine Appearance Clear 14 Urine Specific [place] 1.008 Low 1.010-1.030 14 Urine pH 6.0 5-9 14 Urine Urobilinogen Negative Negative 14 Urine Ketones Negative Negative 14 Urine Protein Negative Negative 14 Urine Leukocytes Negative Negative 14 Urine Blood Negative Negative 14 Urine Nitrite Negative Negative 14 Urine Bilirubin Negative Negative 14 Urine Glucose Negative Negative 14 Type & Screen 11/03/2016 Patient Blood Type O Positive 14 Antibody Screen NEGATIVE 14 Laboratory test finding 11/03/2016 (HCG) Urine Negative Negative 14, 16 Comp Metabolic Panel 11/03/2016 Sodium 136 mmol/L 133-145 14 Potassium 4.4 mmol/L 3.5-5.0 14 Chloride 101 mmol/L 101-111 14 Co2 Carbon Dioxide 28 mmol/L 22-32 14 Anion Gap 7 mmol/L 2-11 14 Glucose 93 mg/dL 70-100 14 Blood Urea Nitrogen 15 mg/dL 6-24 14 Creatinine 0.75 mg/dL 0.51-0.95 14 BUN/Creatinine Ratio 20.0 8-20 14 Total Protein 7.2 g/dL 6.4-8.9 14 Albumin 4.4 g/dL 3.2-5.2 14 Globulin 2.8 g/dL 2-4 14 Albumin/Globulin Ratio 1.6 1-3 14 Total Bilirubin 0.80 mg/dL 0.2-1.0 14 Alkaline Phosphatase 68 U/L 34-104 14 Alt 14 U/L 7-52 14 Ast 18 U/L 13-39 14 Egfr Non- 80.8 >60 14 Egfr 104.0 >60 14, 17 Calcium 9.9 mg/dL 8.6-10.3 14 Laboratory test 11/03/2016 TSH (Thyroid Stim 2.29 mcIU/mL 0.34-5.60 14, 18 finding Horm) Free T4 (Free Thyroxine) 0.75 ng/dL 0.61-1.12 14, 19 Urine Culture And Sensitivities SEE RESULT BELOW 14, 20 Comp Metabolic Panel 11/03/2016 Sodium 136 mmol/L 133-145 14 Potassium 4.4 mmol/L 3.5-5.0 14 Chloride 101 mmol/L 101-111 14 Co2 Carbon Dioxide 28 mmol/L 22-32 14 Anion Gap 7 mmol/L 2-11 14 Glucose 93 mg/dL 70-100 14 Blood Urea Nitrogen 15 mg/dL 6-24 14 Creatinine 0.75 mg/dL 0.51-0.95 14 BUN/Creatinine Ratio 20.0 8-20 14 Total Protein 7.2 g/dL 6.4-8.9 14 Albumin 4.4 g/dL 3.2-5.2 14 Globulin 2.8 g/dL 2-4 14 Albumin/Globulin Ratio 1.6 1-3 14 Total Bilirubin 0.80 mg/dL 0.2-1.0 14 Alkaline Phosphatase 68 U/L 34-104 14 Alt 14 U/L 7-52 14 Ast 18 U/L 13-39 14 Egfr Non- 80.8 >60 14 Egfr 104.0 >60 14, 21 Calcium 9.9 mg/dL 8.6-10.3 14 Laboratory test 11/03/2016 TSH (Thyroid Stim 2.29 mcIU/mL 0.34-5.60 14, 22 finding Horm) Free T4 (Free Thyroxine) 0.75 ng/dL 0.61-1.12 14, 23 Laboratory test finding 02/11/2016 C Reactive Protein 1.21 mg/L < 5.00 24 Connective Tissue Panel 02/11/2016 Anti-Nuclear Antibody 0.4 U 25 Cyclic Citrullinated Peptide <15.6 U 26 Interpretation See Comment 27 Laboratory test finding 02/11/2016 Lyme Disease Serology Negative Negative 28 Complete Blood Count 02/11/2016 WBC 4.7 x10^3/UL 3.6-9.6 RBC 4.24 x10^6/UL 3.90-5.70 HGB 13.6 g/dL 12.1-17.2 HCT 40 % 36-50 MCV 94.0 fL 82.2-97.4 MCH 32.0 pg 27.6-33.3 MCHC 34.2 g/dL 33.0-35.5 RDW 13.1 % 11.6-13.7 PLT 235 x10^3/UL 150-400 MPV 9.0 fL 7.4-10.4 Gran # 2.9 x10^3/UL 1.5-7.2 Lymph# 1.5 x10^3/UL 0.7-4.9 Power# 0.3 x10^3/UL 0.1-0.9 Gran % 58.5 % 42.2-75.2 Lymph % 33.3 % 20.5-51.1 Power% 8.2 % 1.7-9.3 Laboratory test finding 02/05/2012 Quickstrep NEGATIVE Negative Throat - Beta Strep Fma negative@48hrs Laboratory test finding 11/11/2007 Quickstrep NEGATIVE Negative Throat - Beta Strep Fma POSITIVE @ 48 HOURS Lipid Profile (Fma) Female 03/31/2005 Cholesterol 218 mg/dL High 120-200 Triglyceride 100 mg/dL 30-200 HDL-Chol 64 mg/dL 30-85 LDL, Calculated ([facility]) 134 CALC High 0-129 LDL Direct (/[facility]) - mg/dL 0-130 VLDL 20 0-50 HDL Risk Factor ([facility]) 3.4 CALC Low 4.2-7.0 Laboratory test 03/31/2005 CRP (High Sensitivity) 0.68 mg/L 0.00-3.00 29 , 30 finding Homocysteine 13.14 umol/L 3.70-13.90 29 Comp Metabolic ([facility]) 06/13/2002 Glucose, Serum ([facility]/CTX) 103 mg/dL 70 - 105 BUN ([facility]) 13 mg/dL 6-26 Creatinine ([facility]/CTX) 0.9 mg/dL 0.6-1.4 BUN/Creatinin Ratio 15.3 8.0-36 Sodium 146 134-149 Potassium 4.6 3.6-5.5 Chloride 105 mEq/L 94-112 Co2 25 21-32 Calcium (a/[facility]rex) 9.4 mg/dL 8.6-10.0 Total Protein 7.7 g/dL 6.3-8.1 Albumin ([facility]) 5.0 3.8-5.5 Globulin 2.7 2.0-4.8 A/G Ratio ([facility]) 1.9 0.6-2.2 Alkaline Phosphatase 54 U/L 42-98 Alt (SGPT) 17 10-40 Ast (Sgot) ([facility]) 20 U/mL 5-34 Bilirubin, Total 0.7 mg/dL 0.2-1.3 Lipid Profile ([facility]) 06/13/2002 Cholesterol 257 mg/dL High 120-200 31 Triglyceride 114 mg/dL 30-200 32 HDL-Chol 65 30-85 33 LDL-Calculated ([facility]) 169 CALC High 0-129 34 HDL Risk Factor ([facility]) 4.0 CALC Low 4.2-7.0 Laboratory test finding 06/13/2002 VLDL 23 0-50 1 [id number] 2 SEE RESULT BELOW Name: DONAVAN COMBS : [address]: Geovanni Clark MD Acct: [id number] Unit: [id number] AGE: 52 Location: [facility] Re11/30/17 SEX: F Status: DEP REF SPEC: [id number] ZHEN: 11/30/17- SUBM DR: Geovanni Clark MD REQ: [id number] RECD: 11/30/171154 STATUS: INDIA EMMANUEL DR: Jean Linda MD _ ORDERED: LEVEL 4/5 COMMENTS: [id number] FINAL DIAGNOSIS 1. Colon, ileocecal valve, biopsy: -- Hyperplastic polyp. 2. Colon, cecum, biopsy: -- Benign colonic mucosa with surface hyperplastic change. 3. Colon, ileocecal valve base, biopsy: -- Benign smooth muscle fragments with no significant pathologic abnormalities. 4. Colon, proximal right, biopsy: -- Sessile serrated adenoma. -- No high-grade dysplasia or malignancy. 5. Colon, mid transverse, biopsy: -- Hyperplastic polyp. CLINICAL HISTORY Usual bowel habits, no blood POST-OPERATIVE DIAGNOSIS Colonoscopy to cecum with ease; no diverticula; all flat, pale; conclusion: internal hemorrhoids, polyps flat CONTINUED ON NEXT PAGE DEPARTMENT OF PATHOLOGY, [address] [place] [address] Onel Leach M.D. Director [facility] # [id number] RUN DATE: 12/01/17 [facility] LAB LIVE PAGE 2 Patient: DONAVAN COMBS [id number] (Continued) GROSS DESCRIPTION (Continued) GROSS DESCRIPTION 1. The specimen is received in formalin labeled, Ileocecal Polyp, and consists of a 1.2 x 0.8 x 0.3 cm aggregate of brown-pink irregular to polypoid soft tissue fragments which is submitted entirely in one cassette. 2. The specimen is received in formalin labeled, Cecal Polyp, and consists of two brown polypoid soft tissue fragments averaging 0.3 x 0.2 x 0.1 cm which are submitted entirely in one cassette. 3. The specimen is received in formalin labeled, Polypectomy at Ileocecal Base, and consists of a 0.1 x 0.1 by less than 0.1 cm brown irregular soft tissue fragment which is submitted entirely in one cassette. 4. The specimen is received in formalin labeled, Proximal Right Colon Polyp , and consists of a 0.8 x 0.7 x 0.2 cm aggregate of brown-pink irregular to polypoid soft tissue fragments which is submitted entirely in one cassette. 5. The specimen is received in formalin labeled, Mid Transverse Colon Polyp , and consists of a 0.8 x 0.6 x 0.2 cm aggregate of brown-pink irregular to polypoid soft tissue fragments admixed with organic debris. Entirely submitted, one cassette. Signed by and Reported on: Aline Garcia MD 12/01/17 1501 END OF REPORT DEPARTMENT OF PATHOLOGY, [address] [place] [address] Onel Leach M.D. Director [facility] # [id number] 3 SEE RESULT BELOW Name: DONAVAN COMBS : [address]: Aniya Arreaga MD Acct: [id number] Unit: [id number] AGE: 52 Location: [facility] Re11/23/17 SEX: F Status: REG REF SPEC: [id number] ZHEN: 11/23/17-[address] [facility] [address]: Aniya Arreaga MD REQ: [id number] RECD: 11/24/171229 STATUS: INDIA EMMANUEL DR: Jean Linda MD _ ORDERED: TP IMAGE ANALYS, HPV/Thin Prep COMMENTS: [id number] Negative for Intraepithelial lesion or Malignancy A. Ectocervical/Endocervical Specimen Adequacy: Satisfactory of evaluation Transformation zone component identified Patient Information: HPV: High risk HPV RNA testing regardless of pap results. Actual Specimen Date: 11/24/17 LMP If Unknown: 2012 Date of Last Specimen: 09/29/16 Post Menopausal?: Y Date Time Test Result Flag (u) Normal Range 11/23/17 1618 @ HPV RNA Negative Negative @ @ The high-risk HPV types detected by the assay include: 16, @ 18, 31, 33, 35, 39, 45, 51, 52, 56, 58, 59, 66, and 68. Signed by and Reported on: MICHAEL De León (ASC) [id number] This Pap test was evaluated with the assistance of the [employer] Test Imaging System. Due to cytologic findings at the stitching machine operator microscope, comprehensive manual rescreening by a 3Rd Grade Reading Teacher may be required. The Pap Smear is a screening test designed to aid in the detection of premalignant and malignant conditions of the uterine cervix. It is not a diagnostic procedure and should not be used as the sole means of detecting cervical cancer. Both false- positive and false- negative reports do occur. Depending on your risk status, a Pap smear should be obtained and evaluated every 1-3 years. END OF REPORT DEPARTMENT OF PATHOLOGY, [address] [place] [address] Onel Leach M.D. Director [facility] # [id number] 4 2 sst 5 Negative <0.60 Equivocal 0.60 - 0.69 Positive >0.69 6 Negative <30.0 Equivocal 30.0 - 34.9 Positive >34.9 A positive result is generally indicative of acute infection, reactivation or persistent IgM production. 7 Negative <36.0 Equivocal 36.0 - 43.9 Positive >43.9 8 Hepatitis A, Hepatitis C and HIV antibodies may cross-react with this assay. Negative < 9.0 Equivocal 9.0 - 10.9 Positive >10.9 9 Negative <18.0 Equivocal 18.0 - 21.9 Positive >21.9 10 Negative <18.0 Equivocal 18.0 - 21.9 Positive >21.9 11 EBV Interpretation Chart Interpretation EBV-IgM EA(D)-IgG VCA-IgG EBNA-IgG EBV Seronegative - - - - Early Phase + - - - Acute Primary + +or- + - Infection Convalescence/Past - +or- + + Infection Reactivated +or- + + + Infection + Antibody Present - Antibody Absent 12 Negative <0.9 Equivocal 0.9 - 1.1 Positive >1.1 13 Negative <0.9 Equivocal 0.9 - 1.1 Positive >1.1 14 AA 7/6 15 AA 7/6 16 If is still suspected, please repeat test after 48 to 72 hours. This test detects intact HCG only and is indicated for the early detection of . 17 Because ethnic data is not always readily available, this report includes an eGFR for both -Americans and non- Americans. The National Kidney Disease Education Program (NKDEP) does not endorse the use of the MDRD equation for patients that are not between the ages of 18 and 70, are , have extremes of body size, muscle mass, or nutritional status, or are non- or non-. According to the National Kidney Foundation, irrespective of diagnosis, the stage of the disease is based on the level of kidney function: Stage Description GFR(mL/min/1.73 m(2)) 1 Kidney damage with normal or decreased GFR 90 2 Kidney damage with mild decrease in GFR 60-89 3 Moderate decrease in GFR 30-59 4 Severe decrease in GFR 15-29 5 Kidney failure <15 (or dialysis) 18 11/18 19 11/18 20 SEE RESULT BELOW Name: DONAVAN COMBS : [address]: Sangeetha Christensen MD Acct: [id number] Unit: [id number] AGE: 51 Location: [facility] Re11/03/16 SEX: F Status: REG REF SPEC: [id number] ZHEN: 11/03/16-[address] [facility] [address]: Sangeetha Christensen MD REQ: [id number] RECD: 11/03/168736 STATUS: LIDIA MCCOY DR: Jean Linda MD _ SOURCE: URINE SPDESC: ORDERED: Urine Culture COMMENTS: 11/18 QUERIES: Urine Source: Clean Catch Procedure Result Reported Site Urine Culture Final 11/04/16- 1255 ML No growth of clinically significant organisms * ML - MAIN LAB (PSC1) . END OF REPORT * ML=Testing performed at Main Lab DEPARTMENT OF PATHOLOGY, [address] [place] [address] Onel Leach M.D. Director [facility] # [id number] 21 Because ethnic data is not always readily available, this report includes an eGFR for both -Americans and non- Americans. The National Kidney Disease Education Program (NKDEP) does not endorse the use of the MDRD equation for patients that are not between the ages of 18 and 70, are , have extremes of body size, muscle mass, or nutritional status, or are non- or non-. According to the National Kidney Foundation, irrespective of diagnosis, the stage of the disease is based on the level of kidney function: Stage Description GFR(mL/min/1.73 m(2)) 1 Kidney damage with normal or decreased GFR 90 2 Kidney damage with mild decrease in GFR 60-89 3 Moderate decrease in GFR 30-59 4 Severe decrease in GFR 15-29 5 Kidney failure <15 (or dialysis) 22 AA 7 23 AA 7 24 Acute inflammation: >10.00 25 REFERENCE VALUE <=1.0 (Negative) 26 REFERENCE VALUE <20.0 (Negative) 27 Tests for antibodies to dsDNA and CHIP antigens are not performed automatically unless the ANEL result is > or= 3.0 U. Studies performed at [facility] indicate that positive ANEL results <3.0 U are rarely accompanied by positive second order tests. Test Performed by: [place] [address] Inside Sales Professional: Bimal Arango II, M.D., Ph.D. 28 Serologic response to B. burgdorferi infection is not detected, but cannot rule out early infection during which low or undetectable antibody levels to B. burgdorferi may be present. If clinically indicated, a new serum specimen should be submitted in 7-14 days. Test Performed by: [facility] [place] [address] Inside Sales Professional: Bimal Arango II, M.D., Ph.D. 29 FASTING 30 . hs-CRP Result (mg/L) Risk Level <1.0 Low 1.0-3.0 Average >3.0 High Patients with persistently unexplained, marked elevation of hs-CRP (greater than 10 mg/L) after repeated testing should be evaluated for non-cardiovascular etiologies. . 31 [facility] CHOLESTEROL REFERENCE RANGES LOW RISK <200 MG/DL BORDERLINE 200-239 MG/DL HIGH RISK >239 MG/DL 32 [facility] TRYGLYCERIDE REFERENCE RANGES NECP RISK CLASSIFICATION: LOW <200 MG/DL BORDERLINE HIGH 200-400 MG/DL HIGH 401-1000 MG/DL VERY HIGH >1000 MG/DL 33 F[facility] HDL REFERENCE RANGE NCEP RISK CLASSIFICATION PROTECTIVE >60 MG/DL DESIRABLE 35-60 MG/DL HIGH RISK <35 MG/DL 34 [facility] LDL CALCULATED REFERENCE RANGES LOW RISK <130 MG/DL BORDERLINE 130-159 MG/DL HIGH RISK >159 MG/DL Procedures Date CPT Code Description Status 02/27/2018 50328 Electrocardiogram Complete Completed 11/30/2017 Colonoscopy Completed 11/01/2016 55114 Electrocardiogram Complete Completed 10/06/2016 Mammogram Completed 10/09/2008 Mammogram Completed Encounters Type Date Location Provider CPT E/M Dx Office Visit 12/29/2016 2:30p [facility] Aline Hi, [facility] [address] R59.0 Office Visit 11/26/2016 11:30a [facility] Jean Linda M.D. 54209 K62.89 Office Visit 11/01/2016 10:10a [facility] Jean Linda M.D. 85323 M25.551 I45.19 R23.8 Office Visit 02/09/2016 3:40p [facility] Office Jean Linda M.D. 37193 M25.551 Office Visit 02/05/2012 11:00a Main Office Lynne Paz, Afnp-C 16496 462 Office Visit 04/24/2009 3:40p Main Office Yair Meier M.D. 60152 720.2 Office Visit 12/05/2007 4:15p Main Office Selin Cowanzayra, 95772 462 Afnp-C 466.0 Office Visit 11/11/2007 11:30a Main Office Betsyjayden Lowery, [facility] 76986 462 Office Visit 01/18/2007 7:00p Main Office Dex Varela M.D. 22971 461.8 Office Visit 11/30/2006 1:10p Main Office Walt Berry M.D. 04708 462 464.20 Office Visit 03/24/2005 3:20p Main Office Eddie Franco M.D. 01208 272.0 V17.3 V70.0 Office Visit 07/10/2003 1:00p Main Office Dex Varela M.D. 93889 729.5 Office Visit 06/13/2002 9:20a Main Office Walt Berry M.D. 48197 786.50 381.01 V17.4 Plan of Care 02/27/2018 - Jean Linda M.D.I45.19 Other right bundle-branch mvdhjD69.00 Encntr for general adult medical exam w/o abnormal findingsNew Labs:Comp Metabolic-ALL Lab CompaniLipid Panel-ALL Lab CompaniesUa - Non Micro (Fma)TSH ( [facility])CBC Electronic ([facility]ma New)Comments:I feel the patient is in excellent general health, lab order was given, I feel she is medically cleared for the planned surgery by Dr. Lux up:Followup:. (Follow up)AllComments: Continue with routine [employer]OR [employer]TY care Patient to obtain a mammogram in the future
--- OUTSIDE RECORDS SUMMARY | 2018-03-16 08:02 | XMS REPORT ---
:1965 External Reference #:[id number] Author Organization [facility] Address [address] [place] [address] Phone [phone] Care Team Providers Name Role Phone Jean Linda MD Primary Care Physician Unavailable Payers Type Date Identification Numbers Payment Provider Subscriber Commercial Expires: Policy Number: [id number] [employer] Ry A [place] 2016 Group Number: [id number] [address] PayID: [id number] [place] [address] Medigap Part B Expires: 2016 Policy Number: [employer] Ry A [id number] [place] Group Number: [id number] [address] PayID: [id number] [place] [address] Medigap Part B Effective: Policy Number: [employer] Ry A [place] 2016 [id number] Expires: 2016 PayID: [id number] [address] [place] [address] Commercial Policy Number: [id number] A[employer]-[facility] Donavan Doss Group Number: [id number] [address] PayID: [id number] [place] [address] Problems Date Description Provider Status Onset: 10/27/2016 Localized, primary osteoarthritis of the Sangeetha Christensen M.D. Active pelvic region and thigh Family History Date Family Member(s) Problem(s) Comments General Heart Disease Mother Coronary Artery Disease (CAD) Onset: (age 48 Years) Mother [place] Social History Type Date Description Comments Marital Status Lives With Alone Occupation Hair style Occupation hairdresser Cigarette Use Never Smoked Cigarettes ETOH Use Currently consumes alcohol 5/week ETOH Use consumes 1-2 glasses of wine per day Smoking Patient has never smoked Recreational Drug Use Denies Drug Use Daily Caffeine consumes chocolate occasionally Daily Caffeine Consumes on average 2 cups of regular coffee per day Daily Caffeine Diet soda 1 drink occasional Exercise Type/Frequency Exercises regularly everyday, 4 days per week 45 min strength and 35 min of cardio, 3 days per week walking General Hx Text Do you follow a special diet: Mediterranean diet Do you have problems with snoring, and daytime fatigue: yes snoring , daytime fatigue no Allergies, Adverse Reactions, Alerts Date Description Reaction Status Severity Comments 03/08/2018 Pain Medication Sensitivity (Vomiting) active 10/27/2016 NKDA inactive 11/17/2016 NKDA inactive Medications Medication Date Status Form Strength Qnty SIG Indications Ordering Provider Amoxicillin 08/09/ Active Capsules 500mg 8caps take 4 2017 tablets by Fermin mouth 1 hour M.D. prior to dental work. Advil / Active Unknown 0000 Iza / Active Unknown Allergy 0000 Amoxicillin 12/22/ Hx Tablets 500mg 4tabs take 4 M25.551 Sangeetha 2016 tablets by Fermin mouth 1 hour M.D. before dental procedure or colonoscopy Bactrim DS 12/07/ Hx Tablets 800-160mg 6tabs 1 tab twice a Conrad 2016 day for 3 F days MD Nestor Coumadin 11/20/ Hx Tablets 2mg 60tabs take 2 mg by Sangeetha 2016 mouth every Fermin, night at M.D. bedtime or as directed by through nurse Tramadol HCL 11/20/ Hx Tablets 50mg 60tabs 1-2 tablets Sangeetha 2016 - every 6 hours Fermin 12/06/ as needed M.D. 2016 No Active 11/17/ Hx Unknown Medications 2016 - 2016 Advil 00/00/ Hx prn Unknown 0000 - 2016 Advil /00/ Hx Capsules 200mg 2 tabs PM as Unknown 0000 - needed 2016 Iza / Hx Tablets 180mg 1 by mouth Unknown Allergy 0000 - every day as 2016 Nasacort 00/00/ Hx Aerosol 55mcg/Act 2 spray both Unknown Allergy 24HR 0000 nares once daily Tylenol 0000/ Hx Tablets 325mg 2 tablets Unknown 0000 every 4 hours as needed pain Nasacort 00/00/ Hx Aerosol 55mcg/Act 2 spray both Unknown Allergy 24HR 0000 - nares once 2017 Advil 00/ Hx prn Unknown 0000 - 2017 Vital Signs Date Vital Result Comment 03/08/2018 Height 67 inches 5'7" Weight 162.00 lb Heart Rate 76 /min BP Systolic 146 mmHg BP Diastolic 86 mmHg BMI (Body Mass Index) 25.4 kg/m2 01/18/2018 Height 67 inches 5'7" Weight 158.00 lb BP Systolic 116 mmHg BP Diastolic 64 mmHg Body Temperature 98.2 F BMI (Body Mass Index) 24.7 kg/m2 02/23/2017 Height 67 inches 5'7" Weight 168.00 lb Heart Rate 84 /min BP Systolic Sitting 132 mmHg Lue reg cuff BP Diastolic Sitting 94 mmHg Lue reg cuff BP Systolic Standing 128 mmHg Lue BP Diastolic Standing 90 mmHg Lue Respiratory Rate 14 /min BMI (Body Mass Index) 26.3 kg/m2 Ejection Fraction 55-60% 11/17/16 02/02/2017 Height 67 inches 5'7" Weight 162.00 lb Heart Rate 71 /min BP Systolic 123 mmHg BP Diastolic 78 mmHg BMI (Body Mass Index) 25.4 kg/m2 01/12/2017 Heart Rate 80 /min BP Systolic 122 mmHg BP Diastolic 88 mmHg Respiratory Rate 16 /min Body Temperature 96.8 F 01/05/2017 Height 67 inches 5'7" Weight 160.00 lb Heart Rate 90 /min BP Systolic 140 mmHg BP Diastolic 82 mmHg Respiratory Rate 16 /min Body Temperature 98.0 F BMI (Body Mass Index) 25.1 kg/m2 12/22/2016 Height 67 inches 5'7" Weight 162.00 lb Respiratory Rate 16 /min Pain Level 1 BMI (Body Mass Index) 25.4 kg/m2 12/07/2016 Height 67 inches 5'7" Weight 162.00 lb BP Systolic 120 mmHg BP Diastolic 74 mmHg Respiratory Rate 18 /min Body Temperature 98.8 F Pain Level 2 BMI (Body Mass Index) 25.4 kg/m2 12/01/2016 Height 67 inches 5'7" Weight 162.00 lb Heart Rate 84 /min BP Systolic Sitting 116 mmHg BP Diastolic Sitting 66 mmHg Respiratory Rate 14 /min Body Temperature 98.8 F Pain Level 3 BMI (Body Mass Index) 25.4 kg/m2 11/17/2016 Height 67 inches 5'7" Weight 166.00 lb with shoes Heart Rate 84 /min BP Systolic 140 mmHg Rue reg cuff BP Diastolic 88 mmHg Rue reg cuff BP Systolic Sitting 146 mmHg Lue reg cuff BP Diastolic Sitting 94 mmHg Lue reg cuff BP Systolic Standing 140 mmHg Lue reg cuff BP Diastolic Standing 90 mmHg Lue reg cuff Respiratory Rate 17 /min BMI (Body Mass Index) 26.0 kg/m2 11/03/2016 Height 67 inches 5'7" Weight 163.00 lb Heart Rate 72 /min BP Systolic 147 mmHg BP Diastolic 90 mmHg Body Temperature 97.7 F BMI (Body Mass Index) 25.5 kg/m2 10/27/2016 Height 67 inches 5'7" Weight 162.00 lb Heart Rate 84 /min BP Systolic 140 mmHg BP Diastolic 80 mmHg Body Temperature 98.6 F BMI (Body Mass Index) 25.4 kg/m2 Results Test Date Test Result H/L Range Note Laboratory test 01/05/2017 Cytology Non-Grey Stock Recorder SEE RESULT 1 finding BELOW Leukemia/Lymphoma 01/05/2017 Path Interpretation 2-8 TNP Flow Marker Path Interpret > 16 Marker TNP Path Interpret 9-15 Marker (SEE NOTE) 2 Inr/Protime 12/13/2016 Inr 1.14 High 0.89-1.11 Inr/Protime 12/09/2016 Inr 1.37 High 0.89-1.11 Inr/Protime 12/06/2016 Inr 1.93 High 0.89-1.11 Inr/Protime 12/02/2016 Inr 1.27 High 0.89-1.11 Inr/Protime 11/29/2016 Inr 1.42 High 0.89-1.11 Inr/Protime 11/25/2016 Inr 1.37 High 0.89-1.11 Inr/Protime 11/22/2016 Inr 1.13 High 0.89-1.11 Comp Metabolic Panel 11/03/2016 Sodium 136 mmol/L 133-145 3 Potassium 4.4 mmol/L 3.5-5.0 3 Chloride 101 mmol/L 101-111 3 Co2 Carbon Dioxide 28 mmol/L 22-32 3 Anion Gap 7 mmol/L 2-11 3 Glucose 93 mg/dL 70-100 3 Blood Urea Nitrogen 15 mg/dL 6-24 3 Creatinine 0.75 mg/dL 0.51-0.95 3 BUN/Creatinine Ratio 20.0 8-20 3 Total Protein 7.2 g/dL 6.4-8.9 3 Albumin 4.4 g/dL 3.2-5.2 3 Globulin 2.8 g/dL 2-4 3 Albumin/Globulin Ratio 1.6 1-3 3 Total Bilirubin 0.80 mg/dL 0.2-1.0 3 Alkaline Phosphatase 68 U/L 34-104 3 Alt 14 U/L 7-52 3 Ast 18 U/L 13-39 3 Egfr Non- 80.8 >60 3 Egfr 104.0 >60 3, 4 Calcium 9.9 mg/dL 8.6-10.3 3 Laboratory test finding 11/03/2016 TSH (Thyroid Stim 2.29 mcIU/mL 0.34- 5.60 3, 5 Horm) Free T4 (Free Thyroxine) 0.75 ng/dL 0.61-1.12 3, 6 Urine Culture And 11/03/2016 Urine Culture SEE RESULT BELOW 3, 7 Sensitivities Laboratory test finding 11/03/2016 (HCG) Negative Negative 3, 8 Urine Type & Screen 11/03/2016 Patient Blood Type O Positive 3 Antibody Screen NEGATIVE 3 Urinalysis Profile 11/03/2016 Urine Color Straw 3 Urine Appearance Clear 3 Urine Specific [place] 1.008 Low 1.010-1.030 3 Urine pH 6.0 5-9 3 Urine Urobilinogen Negative Negative 3 Urine Ketones Negative Negative 3 Urine Protein Negative Negative 3 Urine Leukocytes Negative Negative 3 Urine Blood Negative Negative 3 Urine Nitrite Negative Negative 3 Urine Bilirubin Negative Negative 3 Urine Glucose Negative Negative 3 Laboratory test finding 11/03/2016 Partial Thrombo 29.2 seconds 26.0- 36.3 3, 9 Time PTT Inr/Protime 11/03/2016 Inr 0.86 Low 0.89-1.11 3 CBC No Diff 11/03/2016 White Blood Count 4.1 10^3/uL 3.5-10.8 3 Red Blood Count 4.81 10^6/uL 4.0-5.4 3 Hemoglobin 14.2 g/dL 12.0-16.0 3 Hematocrit 43 % 35-47 3 Mean Corpuscular Volume 90 fL 80-97 3 Mean Corpuscular Hemoglobin 30 pg 27-31 3 Mean Corpuscular HGB Conc 33 g/dL 31-36 3 Red Cell Distribution Width 13 % 10.5-15 3 Platelet Count 173 10^3/uL 150-450 3 Mean Platelet Volume 10 um3 7.4-10.4 3 1 SEE RESULT BELOW Name: VERNON CONSUELOBryanDONAVAN Kobe : [address]: Juan Amaya MD Acct: [id number] Unit: [id number] AGE: 51 Location: LAB Re01/05/17 SEX: F Status: REG REF SPEC: [id number] ZHEN: 01/05/17-1525 [facility] [address]: Juan Amaya MD REQ: [id number] RECD: 01/05/17-849 STATUS: [place] [facility] DR: Onel Leach MD _ ORDERED: FNA INTERP RPT, FNA BY PALP, CYTO ADEQ-1ST P FINAL DIAGNOSIS Left inguinal lymph node, fine needle aspiration by palpation: -- Benign- reactive lymph node. --Fibroadipose tissue with extensive fat necrosis. Comment: The aspirate smears demonstrate mixed lymphocytes with a background of adipose tissue fragments with features of fat necrosis including numerous lipophages. Concurrent flow cytometric evaluation, though somewhat limited in cellularity demonstrates no immunophenotypic abnormality. The features of fat necrosis likely contributes to exaggerate the physical exam findings somewhat and are likely secondary to mechanical manipulation.. No evidence of neoplasia is identified. The procedure was explained to and understood by the patient. Signed consent was obtained and a time out procedure was performed at the bedside to verify patient identity and biopsy site. Fine needle aspiration biopsy was performed times 2 with a 25 gauge needle on 1.5 cm soft, slightly tender mobile left groin node.. Adequacy was assessed by fast stain technique. The procedure was tolerated well without complications. A. GROIN LEFT - LEFT INGUINAL LYMPH NODE FINE NEEDLE ASPIRATION CONTINUED ON NEXT PAGE * ML=Testing performed at Main Lab DEPARTMENT OF PATHOLOGY, [address] [place] [address] Onel Leach M.D. Director [facility] # [id number] RUN DATE: 01/07/17 [facility] LAB LIVE PAGE 2 Patient: DONAVAN COMBS [id number] (Continued) CLINICAL HISTORY (Continued) CLINICAL HISTORY 1.5 cm soft mobile left groin node. IMMEDIATE INTERPRETATION Both passes -adequate. GROSS DESCRIPTION Fine needle aspiration by palpation x 2 passes with 4 Alcohol fixed slide(s) and Specimen sent to [facility] for Flow cytometry [place], [place] on 01/05/17 by [id number] at 1554. SPECIAL STUDIES Flow cytometry is performed at [facility], [place], [place]. The testing reveals: FINAL DIAGNOSIS: Specimen Source: Flow cytometry immunophenotypic analysis: Immunophenotypic abnormalities identified in a specimen of limited cellularity. Interpretative data: Lymphocytes: 14% of analyzed WBCs B-cells: 18% of lymphocytes with no immunophenotypic abnormality or evidence of light chain restriction. T-cells/NK cells: No aberrant population detected. Markers tested: CD3, CD5, CD7, CD10, CD19, CD20, CD23, CD45, kappa surface light chains, lambda surface light chains, 7-AAD. Quality Assessment: Acceptable Viability: Acceptable Viable lymphocytes (7-AAD): 100% Specimen received within validated guidelines. A Worrell-Giemsa stained slide prepared from CONTINUED ON NEXT PAGE * ML=Testing performed at Main Lab DEPARTMENT OF PATHOLOGY, [address] [place] [address] Onel Leach M.D. Director CLIA # [id number] RUN DATE: 01/07/17 [facility] LAB LIVE PAGE 3 Patient: VERNON LONGODONAAVN Bullock [id number] (Continued) SPECIAL STUDIES (Continued) SPECIAL STUDIES (Continued) the flow cytometry specimen was examined for quality purposes. Electronically signed by: Onel Leach MD 01/06/17 1638 Technical component performed by: [place] [address] Foundry Equipment Mechanic: Bimal Arango II, MD, PhD. Signed (signature on file) Onel Leach MD [id number] END OF REPORT * ML=Testing performed at Main Lab DEPARTMENT OF PATHOLOGY, [address] [place] [address] Onel Leach M.D. Director [facility] # [id number] 2 FINAL DIAGNOSIS: Specimen Source: Flow cytometry immunophenotypic analysis: Immunophenotypic abnormalities identified in a specimen of limited cellularity. Interpretative data: Lymphocytes: 14% of analyzed WBCs B-cells: 18% of lymphocytes with no immunophenotypic abnormality or evidence of light chain restriction. T-cells/NK cells: No aberrant population detected. Markers tested: CD3, CD5, CD7, CD10, CD19, CD20, CD23, CD45, kappa surface light chains, lambda surface light chains, 7-AAD. Quality Assessment: Acceptable Viability: Acceptable Viable lymphocytes (7-AAD): 100% Specimen received within validated guidelines. A Worrell-Giemsa stained slide prepared from the flow cytometry specimen was examined for quality purposes. Electronically signed by: Onel Leach MD 01/06/17 1638 Technical component performed by: [place] [address] Foundry Equipment Mechanic: Bimal Arango II, MD, PhD. 3 AA 11/18 4 Because ethnic data is not always readily [...] 15-29 5 Kidney failure <15 (or dialysis) 5 11/18 6 11/18 7 SEE RESULT BELOW Name: VERNON DONAVAN LONGO : [address]: Sangeetha Christensen MD Acct: [id number] Unit: [id number] AGE: 51 Location: [facility] Re11/03/16 SEX: F Status: REG REF SPEC: [id number] ZHEN: 11/03/16-[address] [facility] [address]: Sangeetha Christensen MD REQ: [id number] RECD: 11/03/16-0036 STATUS: COMP [facility] DR: Jean Linda MD _ SOURCE: URINE SPDESC: ORDERED: Urine Culture COMMENTS: 11/18 QUERIES: Urine Source: Clean Catch Procedure Result Reported Site Urine Culture Final 11/04/16- 1255 ML No growth of clinically significant organisms * ML - MAIN LAB (PSC1) . END OF REPORT * ML=Testing performed at Main Lab DEPARTMENT OF PATHOLOGY, [address] [place] [address] Onel Leach M.D. Director [facility] # [id number] 8 If is still suspected, please repeat test after 48 to 72 hours. This test detects intact HCG only and is indicated for the early detection of . 9 AA 11/18 Procedures Date CPT Code Description Status 11/18/2016 53262 THR Total Hip Replacement Completed 11/18/2016 58714 THR Total Hip Replacement Completed 11/18/2016 22235 THR Total Hip Replacement Completed 11/17/2016 85888 ECHO Transthoracic, Real-Time 2D With Doppler And Color Completed Flow 11/17/2016 47735 EKG Tracing & Interpretation Completed 05/19/2005 70137 ECHO/Stress Completed 05/19/2005 63279 Stress Test Completed Encounters Type Date Location Provider CPT E/M Dx Office Visit 01/18/2018 [facility] Sangeetha Christensen M.D. 40898 Z96.641 9:00a Of [place] M25.552 M16.12 Office Visit 02/23/2017 1:40p [facility] [place] [address] I31.3 [facility] FAC I45.19 Z82.49 E78.5 Office Visit 01/12/2017 1:30p [facility] [place], [address] R59.0 [facility] FACS Office Visit 01/05/2017 2:00p [facility] [place], [address] R59.0 [facility] FACS Office Visit 12/07/2016 3:30p [facility] Conrad Baez, [address]278 R59.1 [facility] WARE R59.0 Office Visit 11/17/2016 11:30a [facility] [place], [address] Z01.810 [facility] DO [facility] I31.3 I45.19 M16.11 Office Visit 10/27/2016 10:00a [facility] Sangeetha Christensen M.D. 70517 M25.551 José LuisMLos M16.11 Plan of Care Future Appointment(s):03/29/2018 11:15 am - Sangeetha Christensen M.D. at [facility] C.M.Jv03/16/2018 11:30 am - Sangeetha Christensen M.D. at [facility].M.AAbhijit03/08/2018 - Sangeetha Christensen M.D.M25.552 Pain in left hipFollow up:Follow up: 2 weeks after gmhdizuS13.12 Unilateral primary osteoarthritis, left hip
[2018-03-16] MEDS ORDERED: celeCOXIB CAP* 100 MG ONE (08:14)
[2018-03-16] MEDS ORDERED: Dexamethasone IV* 4 MG/ML 1 ML (4 MG) ONE (08:14)
[2018-03-16] MEDS ORDERED: Famotidine IV* 10 MG/ML 2 ML (20 mg) ONE (08:14)
[2018-03-16] MEDS ORDERED: Gabapentin CAP(*) 300 MG ONE (08:15)
[2018-03-16] MEDS ORDERED: ceFAZolin 2 GM PREMIX in ORs 2 GM/50 ML BAG IVPB ONE (08:16)
[2018-03-16] MEDS ORDERED: ROPIVACAINE 5 MG/ML 30 ML BTL (0.5%) ONE (09:01)
[2018-03-16] MEDS ORDERED: Midazolam* 1 MG/ML 5 ML VIAL (5 MG) ONE ×2 (09:03→09:39)
[2018-03-16] MEDS ORDERED: Ondansetron INJ* 2 MG/ML VIAL ONE (09:03)
[2018-03-16] MEDS ORDERED: Bupivacaine 0.5% SDV PF* 30ML VIAL ONE (09:05)
[2018-03-16] MEDS ORDERED: Ropivacaine (OR use only) 2 MG/ML 10 ML ONE (09:18)
[2018-03-16] MEDS ORDERED: Acetaminophen IV 1GM/100ML * 100 ML ONE (09:35)
[2018-03-16] MEDS ORDERED: KETAMINE HCL* 50 MG/ML 10 ML VIAL ONE (10:24)
[2018-03-16] MEDS ORDERED: Ondansetron INJ* 2 MG/ML VIAL IV PRN ×2 (11:08→12:48)
[2018-03-16] MEDS ORDERED: Naloxone* 0.4 MG/ML 1 ML VIAL IV PRN (11:08)
[2018-03-16] MEDS ORDERED: DiMENhydriNATE IV* 50 MG/ML VIAL IV PUSH PRN (11:08)
[2018-03-16] MEDS ORDERED: fentaNYL* 50 MCG/ML 2 ML VIAL (100 MCG VIAL) IV PRN (11:08)
[2018-03-16] MEDS ORDERED: HYDROmorphone INJ1* 1 MG/ML SYRINGE IV PRN (11:08)
[2018-03-16] MEDS ORDERED: Scopolamine 1.5 mg* PATCH TRANSDERM PRN (11:08)
--- NOTE | 2018-03-16 12:07 | RAD ---
HISTORY: LEFT TOTAL HIP REPLACEMENT COMPARISONS: January 18, 2018 VIEWS: 1 , portable intraoperative view of the left hip during arthroplasty FINDINGS: Single portable intraoperative view of the left hip during arthroplasty demonstrates bilateral hip arthroplasty. On the left, there is a temporary femoral sizing component. IMPRESSION: LIMITED PORTABLE INTRAOPERATIVE VIEW OF THE HIP DURING ARTHROPLASTY.
[2018-03-16] MEDS ORDERED: Bupivacaine 0.25% SDV* 30 ML ONE (12:20)
[2018-03-16] MEDS ORDERED: Propofol* 10 MG/ML 20 ML BTL IV PUSH ONE (12:20)
[2018-03-16] MEDS ORDERED: diPHENhydraMINE PO* 25 MG PO PRN (12:48)
[2018-03-16] MEDS ORDERED: oxyCODONE TAB* 5 MG TAB PO PRN (12:48)
[2018-03-16] MEDS ORDERED: diPHENhydraMINE IV* 50 MG/ML 1 ml VIAL (BENADRYL) IV PRN (12:48)
[2018-03-16] MEDS ORDERED: Morphine VIAL* 4 MG/ML VIAL (1 ml vial) IV PRN (12:48)
[2018-03-16] MEDS ORDERED: Magnesium Hydroxide LIQ* 30 ML UDC PO PRN (12:48)
[2018-03-16] MEDS ORDERED: oxyCODONE/Acetamin 5/325 MG* TAB PO PRN (12:48)
[2018-03-16] MEDS ORDERED: Cyclobenzaprine TAB* 10 MG PO PRN (12:48)
[2018-03-16] MEDS ORDERED: Ondansetron TAB* 4 MG PO PRN (12:48)
[2018-03-16] MEDS ORDERED: Bisacodyl SUPP* 10 MG SUPP PR PRN (12:56)
[2018-03-16] MEDS ORDERED: Polyethylene Glycol 3350* 17 GM PACKET PO PRN (12:56)
[2018-03-16] MEDS ORDERED: Cetirizine* 10 MG TAB PO PRN (12:58)
--- NOTE | 2018-03-16 13:33 | RAD ---
HISTORY: s/p left total hip COMPARISONS: January 18, 2018 VIEWS: 3 , Frontal view of the pelvis with frontal and crosstable lateral views of the left hip FINDINGS: BONE DENSITY: Normal. BONES: The patient is status post bilateral hip arthroplasty. On the left, there is no appreciable hardware failure or osteolysis. JOINTS: The patient is status post bilateral hip arthroplasty. ALIGNMENT: There is no dislocation. SOFT TISSUES: Unremarkable. OTHER FINDINGS: None. IMPRESSION: STATUS POST BILATERAL HIP ARTHROPLASTY.
[2018-03-16] MEDS ORDERED: DiMENhydriNATE IV* 50 MG/ML VIAL ONE (13:38)
[2018-03-16] MEDS ORDERED: Scopolamine 1.5 mg* PATCH ONE (13:38)
[2018-03-16] MEDS ORDERED: Warfarin TAB(*) 6 MG PO ONE (17:00)
[2018-03-16] MEDS: ceFAZolin 1 GM in Dextrose (*) 1 GM/50 ML BAG IVPB SCH (18:20)
[2018-03-16] MEDS: Acetaminophen TAB* 325 MG PO SCH (18:20)
[2018-03-16] MEDS: Fluticasone NASAL SPRAY 50MCG* 16 gm SPRAY BTL BOTH NARES SCH (18:25)
[2018-03-16] MEDS: Magnesium Hydroxide LIQ* 30 ML UDC PO SCH (21:25)
[2018-03-16] MEDS: Docusate CAP* 100 MG PO SCH (21:25)
[2018-03-16] MEDS: traMADol TAB* 50 MG PO PRN (21:41)
[2018-03-17] MEDS: Acetaminophen TAB* 325 MG PO SCH ×3 (01:41→17:47)
[2018-03-17] MEDS: ceFAZolin 1 GM in Dextrose (*) 1 GM/50 ML BAG IVPB SCH ×2 (01:42→10:15)
[2018-03-17] MEDS: traMADol TAB* 50 MG PO PRN (03:44)
[2018-03-17 06:04] LABS: Hematocrit 33 % (35-47); Hemoglobin 11.2 g/dl (12.0-16.0); Mean Platelet Volume 9.3 um3 (7.4-10.4); Platelet Count 151 10^3/ul (150-450)
[2018-03-17 06:11] LABS: INR 0.93 (0.77-1.02)
[2018-03-17 06:20] LABS: EGFR Non-African American 81.8 (>60)
[2018-03-17] MEDS: Docusate CAP* 100 MG PO SCH ×2 (08:07→22:28)
[2018-03-17] MEDS: Magnesium Hydroxide LIQ* 30 ML UDC PO SCH ×2 (08:07→22:29)
--- NOTE | 2018-03-17 09:00 | OP ---
DATE OF OPERATION: 03/16/18 - ROOM #350 DATE OF : 61 SURGEON: Sangeetha Christensen MD RADIATION OFFICER: ALONDRA Vang. Hellen did help throughout the procedure with preparation of the leg, wound retraction, manipulation of the hip and wound closure. ANESTHESIOLOGIST: Dr. Cancino. ANESTHESIA: Spinal. PRE-OP DIAGNOSIS: Severe end-stage degenerative osteoarthritis of the left hip. POST-OP DIAGNOSIS: Severe end-stage degenerative osteoarthritis of the left hip. OPERATIVE PROCEDURE: Left total hip arthroplasty. COMPLICATIONS: None. ESTIMATED BLOOD LOSS: 200 cc. SPECIMENS: Femoral head and acetabular reamings sent to pathology. HARDWARE USED: This is uncemented iVideosongs total hip arthroplasty hardware. For the cup, a Trident hemispherical acetabular shell 52E, a single 20-mm bone screw. For the insert, a Trident X3 10-degree polyethylene insert 36E. For the stem, an Accolade II size 3 with a 127-degree neck and for the head, a Biolox delta ceramic V40 femoral head 36 -2.5. BRIEF HISTORY AND INDICATIONS: Ms. Josefa Chung is a 52-year-old female with years of increasingly severe left hip pain. Radiographs showed bone on bone arthritis. She failed conservative treatment with antiinflammatories, pain medications and physical therapy. Because of decreased quality of life and chronic pain, she elected to undergo left total hip arthroplasty. Informed consent was obtained from the patient. She understood the risks of surgery included but were not limited to bleeding, infection, damage to nearby structures, continued pain, need for further surgery, intraoperative fracture, nerve palsy, hardware failure or loosening, dislocation, leg length discrepancy , stroke, heart attack, blood clot and . She wished to proceed. INTRAOPERATIVE FINDINGS: Intraoperatively, the patient was noted to have severe end-stage arthritis. She had complete loss of cartilage along the femoral head and acetabulum. She had significant osteophyte formation along the anterior acetabulum. She was noted to have a shallow dysplastic acetabular cup and the femoral neck was also dysplastic. DESCRIPTION OF PROCEDURE: Ms. Josefa Chung was identified in the preanesthesia unit. Her left lower extremity was marked as the correct operative site. Informed consent was signed and placed in the chart. The patient was taken to the operating room and placed under spinal anesthesia. A Bernstein catheter was placed. She was placed in the right lateral decubitus position on the pegboard. All bony prominences were well padded. The left lower extremity was prepped and draped in the usual sterile fashion. Preop time -out was made to correctly identify the patient, side and site. Appropriate perioperative antibiotics were given within 1 hour of incision. A 12-cm posterior hip incision was made with a 10 blade and carried down to the lateral fascia layer. Lateral fascia layer was incised in line with the skin incision. Charnley retractor was placed. The piriformis and conjoint tendons were elevated off the posterolateral femur using electrocautery and tagged with #5 Ethibond. Electrocautery was then used to make a posterolateral capsular flap and this was also tagged with #5 Ethibond. The hip was carefully dislocated. Lesser troch to center of the femoral head measured 50 mm. An oscillating saw was used to make the appropriate femoral neck cut. The femoral head was carefully removed. The femur was retracted anteriorly. After appropriate placement of retractors, the acetabulum was well visualized. Long-handled knife was used to sharply remove any remaining labrum from the acetabular rim. The acetabulum was sequentially reamed up to a size 51. The 51 trial had good fit with appropriate anteversion and abduction angle. A bleeding subchondral bone bed was visible. Final implant chosen was a Trident hemispherical acetabular shell 52E. This was impacted into the acetabulum without difficulty. The cup was stable. There was appropriate anteversion and reduction angle. A single 20-mm screw was placed in the superoposterior quadrant for extra stability. Trident X3 10-degree polyethylene insert 36E was chosen. This was impacted into the acetabulum. Stability of the liner was checked and rechecked and noted to be stable. Next, attention was turned to preparation of the femur. A canal finder was used to enter the proximal femur. The femur was sequentially broached up to a size 3. Size 3 had excellent stability and appropriate anteversion. A 127-neck trial with a 36 +0 head trial was chosen. The lesser troch to the center of the femoral head measured 52 mm and therefore, a -2.5 head was chosen. Lesser troch to the center of femoral head measured 50 mm. The hip was reduced and taken through a range of motion. The hip was stable in all positions. There was good soft tissue tension and appropriate leg lengths. All trials were carefully removed. Final implant chosen was the Accolade II size 3 with a 127-degree neck angle. This was impacted into the femoral canal without difficulty. The stem was stable with appropriate anteversion. A 36 - 2.5 Biolox delta ceramic V40 femoral head was chosen and impacted onto the femoral neck. Lesser troch to the center of the femoral head measured 50 mm. The hip was reduced and taken through a range of motion. The hip was stable in all positions. There was good soft tissue tension and appropriate leg lengths. The previously tagged capsule and tendons were reapproximated to the posterolateral femur through 2 trochanteric drill holes. The hip was copiously irrigated with sterile saline. Lateral fascia layer was closed using interrupted #1 Vicryl. The rest of the incision was closed in a layered fashion using 0 and 2-0 Vicryl. The skin was closed using running 3-0 Monocryl and Dermabond. Sterile Adaptic, 4x4's and paper tape were used to cover the incision. The patient's anesthesia was reversed without difficulty. She was taken to the PACU in stable condition. Intended weightbearing will be weightbearing as tolerated. Intended DVT prophylaxis will be Coumadin with a Lovenox bridge. [id number]/[facility] #: [id number] DANICA
--- NOTE | 2018-03-17 09:31 | PN ---
Progress Note - Progress Note Date of Service: 03/17/18 SOAP: Subjective: []Patient seen OOB in chair, feeling nauseated from the Tramadol this am. She is very sensitive to narcotics and does not want any for discharge home. Received Zofran and has scopolomine patch. Denies SOB, CP or palpitations. Feels she would still like to go home later today if nausea resolves. Objective: [] Vital Signs Temp 99.0 F 03/17/18 08:03 Pulse 75 03/17/18 08:03 Resp 16 03/17/18 08:03 BP 126/63 03/17/18 08:03 Pulse Ox 100 03/17/18 08:03 Intake & Output 03/16/18 03/17/18 03/17/18 18:59 06:59 18:59 Intake Total 2350 2000 Output Total 950 2350 Balance 1400 -350 Weight 158 lb Intake: IV Fluids 2350 1020 ABX - CEFAZOLIN 54 LR 2300 966 NS 50ML, Cefazolin 2G 50 Oral 980 Output: Urine 0 Bernstein 950 2350 Other: # Bowel Movements 0 Laboratory Results - last 24 hr 03/17/18 03/17/18 03/17/18 05:46 05:46 05:46 Hgb 11.2 L Hct 33 L Plt Count 151 MPV 9.3 INR (Anticoag Therapy) 0.93 Sodium 139 Potassium 3.7 Chloride 104 Carbon Dioxide 29 Anion Gap 6 BUN 13 Creatinine 0.74 Est GFR ( Amer) 99.0 Est GFR (Non-Af Amer) 81.8 BUN/Creatinine Ratio 17.6 Glucose 110 H Calcium 8.7 Left hip incision dry, no drainage on dressings thigh soft with mild edema +DF/PF of the left ankle sensation intact distally calf NT and soft New 4x4 dressings applied Assessment: []s/p LTH POD #1 post op nausea Plan: []Meds for nausea: IV Compazine added PT/OT WBAT LLE Hip precautions Coumadin with Lovenox bridge: 8mg today If feeling better and OK with PT, discharge home this evening, otherwise discharge home tomorrow.
[2018-03-17] MEDS ORDERED: PROCHLORPERAZINE INJ 5 MG/ML 2 ML VIAL ONE (10:11)
[2018-03-17] MEDS: PROCHLORPERAZINE INJ 5 MG/ML 2 ML VIAL IV PRN ×2 (10:14→17:43)
[2018-03-17] MEDS ORDERED: Enoxaparin(*) 30 MG/0.3 ML SYR SUBCUT SCH (13:00)
[2018-03-17] MEDS ORDERED: Warfarin TAB(*) 4 MG PO ONE (17:00)
[2018-03-17] MEDS: Fluticasone NASAL SPRAY 50MCG* 16 gm SPRAY BTL BOTH NARES SCH (17:43)
[2018-03-18] MEDS: Acetaminophen TAB* 325 MG PO SCH ×2 (02:31→09:39)
--- NOTE | 2018-03-18 03:03 | DS ---
DISCHARGE SUMMARY: DATE ADMISSION: 03/16/18. DATE OF DISCHARGE: 03/17/18. ATTENDING PHYSICIAN: Dr. Sangeetha Christensen.* (DICTATED BY ALONDRA LYN) ADMISSION DIAGNOSIS: Severe end-stage degenerative osteoarthritis of the left hip. DISCHARGE DIAGNOSIS: Severe end-stage degenerative osteoarthritis of the left hip. OPERATION PERFORMED: Left total hip arthroplasty. HOSPITAL COURSE: The patient is a 52-year-old female with years of increasingly severe left hip pain. She had undergone previous right total hip arthroplasty and had done very well with this. Due to increased pain and decreased quality of life despite failed conservative treatment with antiinflammatories, pain medications, and physical therapy, she elected to proceed with left hip arthroplasty. She was taken to the operating room under the care of Dr. Sangeetha Christensen for the aforementioned procedure on 03/16/18 and tolerated the procedure well. Postoperative day #1, she did have some nausea and small amount of emesis in the a.m. of 03/17/18. Additional medications of Compazine IV was provided with some mild relief of her symptoms. She has done very well with physical therapy and occupational therapy bearing weight as tolerated on the left lower extremity. Her pain is under satisfactory control and she has now discontinued all narcotics due to nausea, which she had trouble with in the past. Patient will have physical therapy session this afternoon and if her nausea completely resolved, she will be discharged to home later today. CONDITION ON DISCHARGE: Current vital signs reveal temperature of 99, pulse 75 , respiratory rate 16, O2 sats 100% on room air, blood pressure 126/63. Her dressings were changed. Her incision is completely dry with no drainage. No evidence of infection. Her calf is soft and nontender. She has active dorsiflexion and plantar flexion of her left ankle. PLAN: Discharge to home later today if nausea resolves and she does well with her afternoon physical therapy session. She will not take any narcotics or will use extra strength Tylenol for pain as needed. She is provided with a prescription of Coumadin 2 mg tablets. She is instructed to take 8 mg on , 6 mg on Tuesday03/18/18 and 4 mg on Tuesday03/19/18 with a repeat INR blood draw. 03/20/18 with further instructions to follow. She is also provided with a prescription of Zofran 4 mg tablets p.o. q.6 hours p.r.n. nausea , #30, 0 refill. She is not medically stable for discharge to home this afternoon. We anticipate probable discharge Tuesday03/18/18. She will follow up as scheduled with Dr. Christensen in 10 to 14 days. ALONDRA LYN [id number]/CPS #: [id number] [facility] HOSPITALJosé
[2018-03-18 06:21] LABS: Hematocrit 32 % (35-47); Mean Platelet Volume 9.6 fL (7.4-10.4); Platelet Count 131 10^3/ul (150-450)
[2018-03-18 06:28] LABS: INR 1.1 (0.77-1.02)
[2018-03-18 08:37] VITALS: BP 124/69
--- NOTE | 2018-03-18 09:02 | PN ---
Progress Note - Progress Note Date of Service: 03/18/18 SOAP: Subjective: [Patient reports feeling better today in terms of nausea. Also has had an easier time getting out of bed. Progressing with PT. Using tylenol for pain as narcotics cause nausea. Denies CP, SOB, dizziness. Feels ready to go home. ] Objective: [A and O x 3, NAD L hip dressing C/D/I. thigh soft , mild edema. Calf soft, NT. Distal gross motor and NV status intact. Vital Signs: Temp Pulse Resp BP Pulse Ox 98.4 F 88 17 124/69 100 03/18/18 08:02 03/18/18 08:02 03/18/18 08:02 03/18/18 08:02 03/18/18 08:02 Laboratory Results - last 24 hr 03/18/18 03/18/18 05:44 05:44 Hgb 11.0 L Hct 32 L Plt Count 131 L MPV 9.6 INR (Anticoag Therapy) 1.10 H ] Assessment: [52 you female s/p L FRIDA POD #2] Plan: [PT/OT WBAT LLE Posterior hip precautions Coumadin - 6 mg today D/C home today after PT F/U with Dr. Christensen 2 weeks]
[2018-03-18] MEDS: Magnesium Hydroxide LIQ* 30 ML UDC PO SCH (09:54)
[2018-03-18] MEDS: Docusate CAP* 100 MG PO SCH (09:54)
[2018-03-19] MEDS ORDERED: Scopolamine PATCH Remove* 1 NOTE MISC PATCH OFF SCH (15:00)
== END 2018-03-18 12:00 | disposition home or self-care (01) | DRG 470 ==
LOC: AA 07:57 → SSU 14:14
PROVIDERS: ADMIT Orthopaedic Surgery Adult Reconstructive Orthopaedic Surgery; ATTEND Orthopaedic Surgery Adult Reconstructive Orthopaedic Surgery
PROC: 0SRB04A Replacement of Left Hip Joint with Ceramic on Polyethylene Synthetic Substitute, Uncemented, Open Approach (ICD-10-PCS; principal; 2018-03-16 10:00)
DX: M16.12 Unilateral primary osteoarthritis, left hip (principal); Z96.641 Presence of right artificial hip joint; M25.752 Osteophyte, left hip; R11.0 Nausea; Z79.1 Long term (current) use of non-steroidal anti-inflammatories (NSAID); Z79.899 Other long term (current) drug therapy; Z82.49 Family history of ischemic heart disease and other diseases of the circulatory system
CPT/HCPCS: 36415; 72170; 80048; 85014; 85018; 85049; 85610; A9270-GY; J0690; J0780; J1100; J1240; J1650; J2250; J2270; J2405; J2704; J2795